=== PATIENT | female | born 1955 | race Caucasian/White ===

== ENCOUNTER 2020-05-16 20:33 | Emergency (ER) | payer BC, MEDICARE ==
[2020-05-16] MEDS ORDERED: HYDROmorphone 1 MG/ML Syringe IVPUSH STA (21:07)
[2020-05-16] MEDS ORDERED: Ondansetron 4 MG/2 ML SDV IVPUSH ONE (21:07)
[2020-05-16] MEDS ORDERED: Sodium Chloride 0.9% 1,000 ML IV SCH (21:15)
--- NOTE | 2020-05-16 21:15 | EDM.PDOC ---
ED HPI GENERAL MEDICAL PROBLEM - General Chief Complaint: Flank Pain Stated Complaint: FLANK PAIN Time Seen by Provider: 05/16/20 20:39 Source of Information: Reports: Patient, RN Notes Reviewed History Limitations: Reports: No Limitations - History of Present Illness INITIAL COMMENTS - FREE TEXT/NARRATIVE: Patient is a 64-year-old female who presents to the ED for evaluation of sudden onset left flank pain. She notes this started at around 230 this afternoon, she is having some nausea and vomiting with this as well. She states that the pain became present, and has not really relented since it showed up. She did take some Tylenol at around 5 PM, she states this did not help much at all. She is complaining of some mild abdomen pain due to the vomiting that she has been having. She denies any other recent illness. Patient denies any other sick- like symptoms, fever/chills, cough/shortness of breath, nausea/vomiting/diarrhea. She further denies any urinary issues like dysuria, frequency or urgency. She has never felt pain like this before, and she has not been known to have kidney stones in the past. Left Flank Pain Score (Numeric/FACES): 5 - Related Data Allergies Allergy/AdvReac Type Severity Reaction Status Date / Time Sulfa (Sulfonamide Allergy Severe Hives Verified 05/16/20 20:50 Antibiotics) Past Medical History Genitourinary History: Reports: UTI, Recurrent Social & Family History - Tobacco Use Tobacco Use Status *Q: Never Tobacco User - Caffeine Use Caffeine Use: Reports: None - Recreational Drug Use Recreational Drug Use: No ED ROS GENERAL - Review of Systems Review Of Systems: Comprehensive ROS is negative, except as noted in HPI. ED EXAM, RENAL/ - Physical Exam Exam: See Below Exam Limited By: No Limitations General Appearance: Alert, WD/WN, No Apparent Distress (Patient is in a mild amount of pain, she is actively holding an emesis bag, but is not actively vomiting at this time.) Respiratory/Chest: No Respiratory Distress, Lungs Clear, Normal Breath Sounds, No Accessory Muscle Use, Chest Non-Tender Cardiovascular: Normal Peripheral Pulses, Regular Rate, Rhythm, No Murmur GI/Abdominal: Normal Bowel Sounds, Soft, Non-Tender, No Distention, No Mass Extremities: Normal Inspection, Normal Capillary Refill Neurological: Alert, Oriented, Normal Cognition, No Motor/Sensory Deficits Psychiatric: Normal Affect, Normal Mood Skin Exam: Warm, Dry, Intact, Normal Color, No Rash Course - Vital Signs Last Recorded V/S: Last Vital Signs Temp 97.7 F 05/16/20 20:44 Pulse 93 05/16/20 20:44 Resp 18 05/16/20 20:44 BP 203/106 H 05/16/20 20:44 Pulse Ox 96 05/16/20 20:44 - Orders/Labs/Meds Orders: Active Orders 24 hr Category Date Time Status Abdomen Pelvis wo Cont [CT] Stat Exams 05/16/20 21:07 Taken Labs: Laboratory Tests 05/16/20 05/16/20 05/16/20 Range/Units 21:03 21:11 21:11 WBC 14.33 H (3.98-10.04) K/mm3 RBC 5.65 H (3.98-5.22) M/mm3 Hgb 11.9 (11.2-15.7) gm/dl Hct 40.4 (34.1-44.9) % MCV 71.5 L (79.4-94.8) fl MCH 21.1 L (25.6-32.2) pg MCHC 29.5 L (32.2-35.5) g/dl RDW Std Deviation 52.2 H (36.4-46.3) fL Plt Count 341 (182-369) K/mm3 MPV 9.5 (9.4-12.3) fl Neut % (Auto) 91.2 H (34.0-71.1) % Lymph % (Auto) 3.6 L (19.3-51.7) % Mayes % (Auto) 5.0 (4.7-12.5) % Eos % (Auto) 0 L (0.7-5.8) Baso % (Auto) 0.1 (0.1-1.2) % Neut # (Auto) 13.08 H (1.56-6.13) K/mm3 Lymph # (Auto) 0.51 L (1.18-3.74) K/mm3 Mayes # (Auto) 0.71 H (0.24-0.36) K/mm3 Eos # (Auto) 0.00 L (0.04-0.36) K/mm3 Baso # (Auto) 0.01 (0.01-0.08) K/mm3 Manual Slide Review Abnormal smear Sodium 138 (136-145) mEq/L Potassium 3.5 (3.5-5.1) mEq/L Chloride 100 (98-107) mEq/L Carbon Dioxide 25 (21-32) mEq/L Anion Gap 16.5 H (5-15) BUN 14 (7-18) mg/dL Creatinine 1.1 H (0.55-1.02) mg/dL Est Cr Clr Drug Dosing 45.27 mL/min Estimated GFR (MDRD) 50 (>60) mL/min BUN/Creatinine Ratio 12.7 L (14-18) Glucose 201 H (80-115) mg/dL Calcium 9.6 (8.5-10.1) mg/dL Total Bilirubin 0.6 (0.2-1.0) mg/dL AST 20 (15-37) U/L ALT 34 (14-59) U/L Alkaline Phosphatase 106 (46-116) U/L Total Protein 8.0 (6.4-8.2) g/dl Albumin 4.2 (3.4-5.0) g/dl Globulin 3.8 gm/dL Albumin/Globulin Ratio 1.1 (1-2) Urine Color Light yellow (Yellow) Urine Appearance Clear (Clear) Urine pH 8.0 (5.0-8.0) Ur Specific [place] 1.025 (1.005-1.030) Urine Protein Negative (Negative) Urine Glucose (UA) 1+ H (Negative) Urine Ketones 2+ H (Negative) Urine Occult Blood 2+ H (Negative) Urine Nitrite Negative (Negative) Urine Bilirubin Negative (Negative) Urine Urobilinogen 0.2 (0.2-1.0) Ur Leukocyte Esterase Negative (Negative) Urine RBC 40-50 H (0-5) /hpf Urine WBC 0-5 (0-5) /hpf Ur Squamous Epith Cells 0-5 (0-5) /hpf Urine Bacteria Few (FEW) /hpf Urine Mucus Few (FEW) /hpf Meds: Medications Discontinued Medications Generic Name Dose Route Start Last Admin Trade Name Freq PRN Reason Stop Dose Admin Hydromorphone HCl 0.5 mg 05/16/20 21:07 05/16/20 21:20 Dilaudid IVPUSH 05/16/20 21:08 0.5 mg ONETIME STA Administration Sodium Chloride 1,000 mls @ 150 mls/hr 05/16/20 21:15 05/16/20 21:18 Normal Saline IV 150 mls/hr ASDIRECTED LEIGH Administration Ondansetron HCl 4 mg 05/16/20 21:07 05/16/20 21:18 Zofran IVPUSH 05/16/20 21:08 4 mg ONETIME ONE Administration - Re-Assessments/Exams Free Text/Narrative Re-Assessment/Exam: 05/16/20 21:14 Patient presents to the ED for the evaluation of her sudden onset left flank pain. This does present like a kidney stone in nature. She is already given us a urine sample for evaluation. She will get IV to be placed, half a milligram of Dilaudid for initial pain management, 4 mg Zofran, IV fluids, and abdomen pelvis CT without contrast for further evaluation. Of note the patient's blood pressure is elevated at 200 systolically. We will await to see if she gets some relief from the pain, before we treat her blood pressure at this time. 05/16/20 22:09 Patient's white count is back, mildly elevated at 14.99, with 91% neutrophils. Metabolic panel shows a creatinine of 1.1 with a GFR 50, I do not have a baseline to compare this to. Blood sugar also mildly elevated at 200, the CT has been performed, there is some perinephric stranding around the left kidney, and there does appear to be a rather large stone within the proximal left ureter, and another stone within the left kidney itself. Still awaiting urinalysis, as I inadvertently canceled the order initially. But I did put the order back in, and they state they will resulted shortly. 05/16/20 22:15 The patient's urinalysis is back, demonstrates no obvious sign of infection, she has 40-50 red blood cells per high-power field, leukocyte Estrace negative, nitrite negative, 0-5 white blood cells. I do suspect that the patient's elevated white count might be due to stress reaction at this time. She has not had a fever, or any other worrisome symptoms. The patient's blood pressure has improved to 159/85 at this time. 05/16/20 22:31 The patient does have a 7.5 x 5.5 left UPJ stone with moderate left hydronephrosis and perinephric stranding. There is also a large hiatal hernia appreciated. There is also a 16 x 12 mm partial spiculated asymmetric nodular density within the upper inner quadrant of the left breast is only partially visualized, direct clinical assessment and follow-up diagnostic mammographic evaluation is recommended to exclude features of malignancy. Departure - Departure Time of Disposition: 22:48 Disposition: Home, Self-Care 01 Condition: Good Clinical Impression: Kidney stone on left side, Breast mass in female - Discharge Information *PRESCRIPTION DRUG MONITORING PROGRAM REVIEWED*: No *COPY OF PRESCRIPTION DRUG MONITORING REPORT IN PATIENT HONORIO: No Instructions: Breast Self-Awareness, [id number], Kidney Stones, [id number], Dietary Guidelines to Help Prevent Kidney Stones Referrals: PCP,None [Primary Care Provider] - Forms: ED Department Discharge Additional Instructions: You were evaluated in the ER today for your left flank pain. Your urinalysis did demonstrate some blood in urine, which is suggestive of a kidney stone at this time. A CT was done at this ER visit, this demonstrated a rather large kidney stone within your proximal left ureter, this measures 7.5 x 5.5 mm. You have been given a strainer, please use every time you use the bathroom to make sure that the kidney stone has passed. There is a very high likelihood, that this will not pass on its own. Recommend that you increase your oral fluid intake to try to help the stone pass. You have been given a few tablets of pain medication, please take as prescribed. These medications are highly addictive, please take as few as you need to. These medications also may cause constipation, please take a stool softener like MiraLAX while taking these medications. You were given a few tablets of medication for nausea as well, 1 tablet dissolvable under your tongue every 8 hours as needed for further nausea. You will need to follow-up with urology, for further evaluation and management. [facility] urology clinics in [place] telephone number is [phone], you may call there on Tuesday morning to get an appointment for further evaluation and management. Your CT also demonstrated an incidental finding of a 16 x 12 mm mass within your left breast. Radiology is suggesting a follow-up diagnostic mammography to exclude features of malignancy at this time. It is very important that you follow-up with a regular care provider, so we can get a mammo ordered to help further evaluate this mass. Please return to the ED if your symptoms change or worsen. Sepsis Event Note (ED) - Evaluation Sepsis Screening Result: No Definite Risk - My Orders Last 24 Hours: My Active Orders 05/16/20 21:07 Abdomen Pelvis wo Cont [CT] Stat - Assessment/Plan Last 24 Hours: My Active Orders 05/16/20 21:07 Abdomen Pelvis wo Cont [CT] Stat
--- NOTE | 2020-05-19 09:25 | CT ---
PROCEDURE INFORMATION: Exam: CT Abdomen And Pelvis Without Contrast Exam date and time: 05/16/2020 9:53 PM Age: 64 years old Clinical indication: Other: Left lower back; Patient HX: Acute lower left sided back pain, eval for ureterolith TECHNIQUE: Imaging protocol: Computed tomography of the abdomen and pelvis without contrast. Radiation optimization: All CT scans at this facility use at least one of these dose optimization techniques: automated exposure control; mA and/or kV adjustment per patient size (includes targeted exams where dose is matched to clinical indication); or iterative reconstruction. COMPARISON: No relevant prior studies available. FINDINGS: Lungs: Compressive atelectasis in the left lower lobe adjacent to the large hiatal hernia. Heart: Mild cardiomegaly. Liver: Normal size and contour. Well-circumscribed low-density lesion in the right hepatic lobe measuring 8 mm in diameter, demonstrating benign CT features most consistent with hepatic cyst. Another is seen in the left lobe measuring 6 mm. No further imaging characterization/followup is required based on current consensus criteria. No intrahepatic biliary ductal dilatation. Gallbladder and bile ducts: Normal. No calcified stones. No ductal dilation. Pancreas: Normal. No inflammatory changes or ductal dilation. Spleen: Normal. No splenomegaly. Adrenal glands: Normal. No adrenal mass. Kidneys and ureters: Moderate left hydronephrosis with a 7.5 by 5.5 mm left UPJ stone. The right kidney and right collecting system are unremarkable. 4.5 mm nonobstructive stone in the upper pole of the left kidney. Stomach and bowel: Large hiatal hernia containing the mid and proximal gastric segments. The small bowel is normal with no evidence of obstruction. No acute colonic abnormalities. Appendix: The appendix is normal in caliber and demonstrates no evidence of appendicitis. Intraperitoneal space: No free fluid or air. Vasculature: Moderate tortuosity/ectasia of the thoracic aorta. Mild atherosclerotic aortoiliac calcification without aneurysm. Lymph nodes: No adenopathy. Urinary bladder: Unremarkable as visualized. Reproductive: Unremarkable as visualized. Bones/joints: Osteopenia. Mild superior endplate compression deformity of L1 with 25% loss of anterior vertebral body height, likely chronic with no retropulsion. 5 mm degenerative retrolisthesis L3-L4. Soft tissues: 16 x 12 mm partially spiculated asymmetric nodular density in the upper inner quadrant of the left breast on series 2, image 1, partially visualized. Directed clinical assessment and follow-up diagnostic mammographic evaluation recommended. IMPRESSION: 1. 7.5 x 5.5 mm left UPJ stone with moderate left hydronephrosis and perinephric stranding. 2. 16 x 12 mm partially spiculated asymmetric nodular density in the upper inner quadrant of the left breast. There is only partially visualized. Directed clinical assessment and follow-up diagnostic mammographic evaluation recommended to exclude features of malignancy. 3. Large hiatal hernia. 4. Mild superior endplate compression deformity of L1 is age indeterminate but demonstrates largely chronic CT features. 5. Additional non-emergent findings detailed above. Thank you for allowing us to participate in the care of your patient. Dictated and Authenticated by: Elie Hernández MD 05/16/2020 11:23 PM Central Time ([place] & [place]) BUD
== END 2020-05-16 23:21 | disposition home or self-care (01) ==
LOC: JD.ED 20:33
DX: N13.2 Hydronephrosis with renal and ureteral calculous obstruction (principal); N63.20 Unspecified lump in the left breast, unspecified quadrant
CPT/HCPCS: 36415; 74176; 80053; 81001; 85025; 96374; 96375; 99284; J1170; J2405; J7030

== ENCOUNTER 2020-05-18 07:52 | Emergency (ER) | payer BC, MEDICARE ==
--- NOTE | 2020-05-18 08:21 | EDM.PDOC ---
ED HPI GENERAL MEDICAL PROBLEM - General Chief Complaint: Gastrointestinal Problem Stated Complaint: ABD PAIN/VOMITING Time Seen by Provider: 05/18/20 08:13 - History of Present Illness INITIAL COMMENTS - FREE TEXT/NARRATIVE: 64-year-old female returns to the emergency room with nausea vomiting and continued abdominal pain. Patient was seen here 2 days ago diagnosed with a left-sided kidney stone that was proximal. She thought she had a bladder infection but was not started on antibiotics. Her urinalysis done 2 days ago was not suggestive of an infectious process. Patient has left-sided abdominal pain and when he gets bad radiates across the lower abdomen. She is not aware of any fevers or chills however Zofran is not working and she is developing more nausea and vomiting. She gets some relief from the discomfort using the Merrill. Patient denies fevers or chills and has no pain with urination. Abdominal Pain Score (Numeric/FACES): 10 - Related Data Allergies Allergy/AdvReac Type Severity Reaction Status Date / Time Sulfa (Sulfonamide Allergy Severe Hives Verified 05/18/20 08:16 Antibiotics) Home Meds: Home Meds Ciprofloxacin HCl [Cipro] 500 mg PO BID #14 tablet 05/18/20 [Rx] Past Medical History Genitourinary History: Reports: UTI, Recurrent Social & Family History - Caffeine Use Caffeine Use: Reports: None ED ROS GENERAL - Review of Systems Review Of Systems: See Below Constitutional: Reports: No Symptoms HEENT: Reports: No Symptoms Respiratory: Reports: No Symptoms Cardiovascular: Reports: No Symptoms GI/Abdominal: Reports: Abdominal Pain, Nausea, Vomiting : Reports: Flank Pain. Denies: Discharge, Frequency, Hematuria, Urgency Musculoskeletal: Reports: No Symptoms Neurological: Reports: No Symptoms ED EXAM, GI/ABD - Physical Exam Exam: See Below Exam Limited By: No Limitations General Appearance: Alert, No Apparent Distress, Other (Her blood pressure is quite elevated we will keep an eye on this. Her pulse oximetry is 89 to 90% on room air will keep an eye on this as well.) Head: Atraumatic, Normocephalic Neck: Normal Inspection, Supple, Non-Tender, Full Range of Motion Respiratory/Chest: No Respiratory Distress, Lungs Clear, Normal Breath Sounds Cardiovascular: Regular Rate, Rhythm, No Edema, No Murmur GI/Abdominal Exam: Normal Bowel Sounds, Soft, Other (Left-sided discomfort minimally worsened with palpation no other palpable tenderness noted no rigidity rebound or guarding noted.) Back Exam: Normal Inspection. No: CVA Tenderness (L), CVA Tenderness (R) Extremities: Normal Inspection, No Pedal Edema Neurological: Alert, Oriented, Normal Cognition Course - Vital Signs Last Recorded V/S: Last Vital Signs Temp 36.8 C 05/18/20 08:11 Pulse 107 H 05/18/20 08:11 Resp 18 05/18/20 08:11 BP 210/123 H 05/18/20 08:11 Pulse Ox 90 L 05/18/20 08:11 - Orders/Labs/Meds Orders: Active Orders 24 hr Category Date Time Status KUB [Abdomen 1V Flat] [CR] Stat Exams 05/18/20 11:18 Taken CULTURE URINE [RM] Stat Lab 05/18/20 09:15 Received Labs: Laboratory Tests 05/18/20 05/18/20 05/18/20 Range/Units 09:03 09:03 09:07 WBC 15.40 H (3.98-10.04) K/mm3 RBC 5.29 H (3.98-5.22) M/mm3 Hgb 11.2 (11.2-15.7) gm/dl Hct 37.8 (34.1-44.9) % MCV 71.5 L (79.4-94.8) fl MCH 21.2 L (25.6-32.2) pg MCHC 29.6 L (32.2-35.5) g/dl RDW Std Deviation 51.6 H (36.4-46.3) fL Plt Count 279 (182-369) K/mm3 MPV 10.0 (9.4-12.3) fl Neutrophils % (Manual) 87 H (40-60) % Band Neutrophils % 0 (0-10) % Lymphocytes % (Manual) 5 L (20-40) % Atypical Lymphs % 0 % Monocytes % (Manual) 8 (2-10) % Eosinophils % (Manual) 0 L (0.7-5.8) % Basophils % (Manual) 0 L (0.1-1.2) Platelet Estimate Adequate Poikilocytosis 1+ slight Anisocytosis 2+ moderate Microcytosis 2+ moderate RBC Morph Comment Abnormal Sodium 133 L (136-145) mEq/L Potassium 3.4 L (3.5-5.1) mEq/L Chloride 97 L (98-107) mEq/L Carbon Dioxide 27 (21-32) mEq/L Anion Gap 12.4 (5-15) BUN 11 (7-18) mg/dL Creatinine 0.9 (0.55-1.02) mg/dL Est Cr Clr Drug Dosing 55.33 mL/min Estimated GFR (MDRD) > 60 (>60) mL/min BUN/Creatinine Ratio 12.2 L (14-18) Glucose 147 H (80-115) mg/dL Lactic Acid 0.7 (0.4-2.0) mmol/L Calcium 9.1 (8.5-10.1) mg/dL Total Bilirubin 0.8 (0.2-1.0) mg/dL AST 13 L (15-37) U/L ALT 28 (14-59) U/L Alkaline Phosphatase 92 (46-116) U/L Total Protein 7.4 (6.4-8.2) g/dl Albumin 3.6 (3.4-5.0) g/dl Globulin 3.8 gm/dL Albumin/Globulin Ratio 1.0 (1-2) Urine Color (Yellow) Urine Appearance (Clear) Urine pH (5.0-8.0) Ur Specific [place] (1.005-1.030) Urine Protein (Negative) Urine Glucose (UA) (Negative) Urine Ketones (Negative) Urine Occult Blood (Negative) Urine Nitrite (Negative) Urine Bilirubin (Negative) Urine Urobilinogen (0.2-1.0) Ur Leukocyte Esterase (Negative) Urine RBC (0-5) /hpf Urine WBC (0-5) /hpf Ur Squamous Epith Cells (0-5) /hpf Urine Bacteria (FEW) /hpf Urine Mucus (FEW) /hpf 15/20 Range/Units 09:15 WBC (3.98-10.04) K/mm3 RBC (3.98-5.22) M/mm3 Hgb (11.2-15.7) gm/dl Hct (34.1-44.9) % MCV (79.4-94.8) fl MCH (25.6-32.2) pg MCHC (32.2-35.5) g/dl RDW Std Deviation (36.4-46.3) fL Plt Count (182-369) K/mm3 MPV (9.4-12.3) fl Neutrophils % (Manual) (40-60) % Band Neutrophils % (0-10) % Lymphocytes % (Manual) (20-40) % Atypical Lymphs % % Monocytes % (Manual) (2-10) % Eosinophils % (Manual) (0.7-5.8) % Basophils % (Manual) (0.1-1.2) Platelet Estimate Poikilocytosis Anisocytosis Microcytosis RBC Morph Comment Sodium (136-145) mEq/L Potassium (3.5-5.1) mEq/L Chloride (98-107) mEq/L Carbon Dioxide (21-32) mEq/L Anion Gap (5-15) BUN (7-18) mg/dL Creatinine (0.55-1.02) mg/dL Est Cr Clr Drug Dosing mL/min Estimated GFR (MDRD) (>60) mL/min BUN/Creatinine Ratio (14-18) Glucose (80-115) mg/dL Lactic Acid (0.4-2.0) mmol/L Calcium (8.5-10.1) mg/dL Total Bilirubin (0.2-1.0) mg/dL AST (15-37) U/L ALT (14-59) U/L Alkaline Phosphatase (46-116) U/L Total Protein (6.4-8.2) g/dl Albumin (3.4-5.0) g/dl Globulin gm/dL Albumin/Globulin Ratio (1-2) Urine Color Yellow (Yellow) Urine Appearance Clear (Clear) Urine pH 6.5 (5.0-8.0) Ur Specific [place] > or = 1.030 (1.005-1.030) Urine Protein 2+ H (Negative) Urine Glucose (UA) Negative (Negative) Urine Ketones 2+ H (Negative) Urine Occult Blood 1+ H (Negative) Urine Nitrite Negative (Negative) Urine Bilirubin Negative (Negative) Urine Urobilinogen 0.2 (0.2-1.0) Ur Leukocyte Esterase Trace H (Negative) Urine RBC 5-10 H (0-5) /hpf Urine WBC 10-20 H (0-5) /hpf Ur Squamous Epith Cells 0-5 (0-5) /hpf Urine Bacteria Few (FEW) /hpf Urine Mucus Few (FEW) /hpf Meds: Medications Discontinued Medications Generic Name Dose Route Start Last Admin Trade Name Reji PRN Reason Stop Dose Admin Fentanyl 50 mcg 05/18/20 08:23 05/18/20 08:37 Sublimaze IVPUSH 05/18/20 08:24 50 mcg ONETIME ONE Administration Fentanyl 50 mcg 05/18/20 09:29 05/18/20 09:30 Sublimaze IVPUSH 05/18/20 09:30 50 mcg ONETIME STA Administration Ondansetron HCl 4 mg 05/18/20 08:23 05/18/20 08:33 Zofran IVPUSH 05/18/20 08:24 4 mg ONETIME ONE Administration - Re-Assessments/Exams Free Text/Narrative Re-Assessment/Exam: 05/18/20 12:06 KUB shows a lot of gas in the large bowel. There is some stool noted in the rectum. She also has a large esophageal hiatal hernia. Urinalysis possibly could be suggestive of a developing UTI she has more white cells and at the red cells trace leukocyte esterase. The case was discussed with Dr. Covington, on- call urologist at [facility] his recommendation is to go ahead and start Cipro and to schedule appointment with urology early this next week. I did discuss all this with the patient and with the patient having difficulty did discuss the possibility of inpatient management. However the patient really wants to go home she can use her Zofran 1 or 2 tablets every 6 hours as needed and she can use her Merrill as prescribed 1 every 4-6 hours as needed which is been doing okay for her. We did discuss her drinking a bottle of mag citrate see if that would help move the rectal stool and allow for passage of the colon gas. She will stick with a strict clear liquid diet for now. Departure - Departure Time of Disposition: 12:08 Disposition: Home, Self-Care 01 Clinical Impression: Left renal stone, Gaseous distention of intestine determined by X-ray - Discharge Information Referrals: Inés Valencia MD [Primary Care Provider] - Forms: ED Department Discharge, ED Return to Work/School Form Additional Instructions: Return to the emergency room with any questions problems or worsening symptoms. Start the antibiotics as directed. [facility] [address]. Liquid diet as we discussed. Call [phone], this is central scheduling for [facility] in [place] you need to be seen by urology early to middle part of this week. Your case was reviewed with Dr. Covington. Of your nausea medication, take 1 or 2 every 6 hours as needed. Continue your pain medications if you have any using before. Do not drive or return to work within 12 hours of using the pain medication. Sepsis Event Note (ED) - Focused Exam Vital Signs: Vital Signs Temp Pulse Resp BP Pulse Ox 05/18/20 08:11 36.8 C 107 H 18 210/123 H 90 L - My Orders Last 24 Hours: My Active Orders 05/18/20 09:15 CULTURE URINE [RM] Stat 05/18/20 11:18 KUB [Abdomen 1V Flat] [CR] Stat - Assessment/Plan Last 24 Hours: My Active Orders 05/18/20 09:15 CULTURE URINE [RM] Stat 05/18/20 11:18 KUB [Abdomen 1V Flat] [CR] Stat
[2020-05-18] MEDS ORDERED: fentaNYL 100 MCG/2 ML SDV IVPUSH ONE (08:23)
[2020-05-18] MEDS ORDERED: Ondansetron 4 MG/2 ML SDV IVPUSH ONE (08:23)
[2020-05-18] MEDS ORDERED: fentaNYL 100 MCG/2 ML SDV IVPUSH STA (09:29)
--- NOTE | 2020-05-19 09:35 | CR ---
PROCEDURE INFORMATION: Exam: XR Abdomen, 1 View Exam date and time: 05/18/2020 11:30 AM Age: 64 years old Clinical indication: Other: No bowel movement for 5 days. TECHNIQUE: Imaging protocol: XR of the abdomen. Views: Frontal supine view of the abdomen. 1 View. COMPARISON: CT Abdomen Pelvis wo Cont 05/16/2020 9:53 PM FINDINGS: Heart/Mediastinum: Large esophageal hiatal hernia. Most of the stomach is herniated above the left diaphragm. Gastrointestinal tract: Gas distended mildly dilated loops large bowel throughout the abdomen. Gas and stool is seen in the rectum. No dilated loops of small bowel are identified. Bones/joints: Unremarkable. IMPRESSION: 1. Gas distended mildly dilated loops of large bowel from the cecum to the rectum. 2. Large esophageal hiatal hernia. Thank you for allowing us to participate in the care of your patient. Dictated and Authenticated by: Nayeli Montoya MD 05/18/2020 12:55 PM Central Time ([place] & [place]) BUD
== END 2020-05-18 12:35 | disposition home or self-care (01) ==
LOC: JD.ED 07:52
DX: N20.0 Calculus of kidney (principal); K63.89 Other specified diseases of intestine; Z88.2 Allergy status to sulfonamides
CPT/HCPCS: 36415; 74018; 80053; 81001; 83605; 85007; 85027; 87086; 87088; 87186; 96374; 96375; 96376; 99284; J2405; J3010

== ENCOUNTER 2021-07-13 13:59 | Emergency (ER) | payer BC, MEDICARE ==
[2021-07-13] MEDS ORDERED: Sodium Chloride 0.9% 10 ML Syringe FLUSH PRN (14:22)
--- NOTE | 2021-07-13 15:31 | EDM.PDOC ---
ED HPI GENERAL MEDICAL PROBLEM - General Chief Complaint: Cardiovascular Problem Stated Complaint: [facility] Time Seen by Provider: 07/13/21 14:02 Source of Information: Reports: Patient, EMS, EMS Notes Reviewed History Limitations: Reports: No Limitations - History of Present Illness INITIAL COMMENTS - FREE TEXT/NARRATIVE: 65-year-old female presents the emergency department via ambulance service with complaints of dizziness and low heart rate. Patient states she was at work at her local [employer] this morning when she began to feel dizzy. She states she checked her oxygen level on her pulse oximeter which read 99% however her heart rate read 35. At that time she elected to call [facility] and spoke to a nurse and the nurse directed her to call EMS immediately and be brought to the emergency department. At the time of triage, the patient is awake alert and oriented. She denies any chest pain, nausea, diaphoresis or lightheadedness. Patient does not have any past medical history other than a kidney stone approximately 1 year ago. She has no cardiac history. Patient does not have a smoking history. She does not take any prescription medications. Her primary care provider is Dr. Erickson. - Related Data Allergies Allergy/AdvReac Type Severity Reaction Status Date / Time Sulfa (Sulfonamide Allergy Severe Hives Verified 07/13/21 14:11 Antibiotics) ketorolac [From Toradol] Allergy Cannot Verified 07/13/21 14:11 Remember Home Meds: Home Meds Ciprofloxacin HCl [Cipro] 500 mg PO BID #14 tablet 05/18/20 [Rx] Past Medical History Genitourinary History: Reports: Renal Calculus, UTI, Recurrent Social & Family History - Tobacco Use Tobacco Use Status *Q: Never Tobacco User - Caffeine Use Caffeine Use: Reports: None ED ROS GENERAL - Review of Systems Review Of Systems: Comprehensive ROS is negative, except as noted in HPI. ED EXAM, GENERAL - Physical Exam Exam: See Below Exam Limited By: No Limitations General Appearance: Alert, WD/WN, No Apparent Distress Ears: Normal External Exam, Hearing Grossly Normal Nose: Normal Inspection Throat/Mouth: Normal Inspection, Normal Lips, Normal Voice, No Airway Compromise Head: Atraumatic Neck: Normal Inspection, Supple Respiratory/Chest: No Respiratory Distress, Lungs Clear, Normal Breath Sounds, No Accessory Muscle Use, Chest Non-Tender Cardiovascular: Normal Peripheral Pulses, No Edema, No Murmur, Bradycardia, Tachycardia Peripheral Pulses: 2+: Radial (L), Radial (R) GI/Abdominal: Normal Bowel Sounds, Soft, Non-Tender, No Distention (Female) Exam: Deferred Rectal (Female) Exam: Deferred Back Exam: Normal Inspection Extremities: Normal Inspection Neurological: Alert, Oriented, Normal Cognition Psychiatric: Normal Affect, Normal Mood Skin Exam: Warm, No Rash, Pallor Lymphatic: No Adenopathy #1 Interpretation EKG Date: 07/13/21 Time: 14:24 Rhythm: Other Rate (Beats/Min): 152 [place]: Other P-Wave: Variable QRS: Other ST-T: Other QT: Normal Comparison: NA - No Prior EKG EKG Interpretation Comments: Per Dr. Steward interpretation: SVT; incomplete RBB, abnormal r wave progression; probable rv involvemen, suggest recording right precordial lead Course - Vital Signs Text/Narrative:: As stated above, patient presents with sudden onset dizziness that occurred while at work today. The time of my exam, the patient is awake alert and oriented. She denies any chest pain dizziness or nausea. Several twelve-lead EKGs were completed which show patient going in and out of the tachycardic and bradycardic rhythm. I did phone [facility] call and spoke with , neurologist on-call, and had him review the patient's EKGs. He states that it looks like the patient is having runs of sinus rhythm with premature ventricular contractions as well as some complete heart block. He does not recommend I start her on any medication to control her heart rate and rhythm. He states that she needs to be transferred somewhere where an ethnoarchaeology professor can evaluate her. I did order a full cardiac work-up to include labs, EKGs, Covid swabs and chest x-ray. I have phoned [facility] call and spoken with the 1 call nurse. He states that he may have a bed available and has paged the inventory control manager, , who will be returning my call. Pacer pads are on the patient. Last Recorded V/S: Last Vital Signs Temp 98.3 F 07/13/21 14:08 Pulse 130 H 07/13/21 14:08 Resp 18 07/13/21 14:08 BP 183/106 H 07/13/21 14:08 Pulse Ox 96 07/13/21 14:08 - Orders/Labs/Meds Orders: Active Orders 24 hr Category Date Time Status Saline Lock Insert [OM.PC] Stat Oth 07/13/21 14:22 Ordered Labs: Laboratory Tests 07/13/21 07/13/21 07/13/21 Range/Units 14:14 14:14 14:14 WBC 9.28 (3.98-10.04) K/mm3 RBC 4.83 (3.98-5.22) M/mm3 Hgb 9.2 L D (11.2-15.7) gm/dl Hct 33.0 L (34.1-44.9) % MCV 68.3 L D (79.4-94.8) fl MCH 19.0 L (25.6-32.2) pg MCHC 27.9 L (32.2-35.5) g/dl RDW Std Deviation 52.4 H (36.4-46.3) fL Plt Count 336 (182-369) K/mm3 MPV 10.9 (9.4-12.3) fl Neut % (Auto) 83.1 H (34.0-71.1) % Lymph % (Auto) 8.7 L (19.3-51.7) % Curry % (Auto) 7.2 (4.7-12.5) % Eos % (Auto) 0.6 L (0.7-5.8) Baso % (Auto) 0.2 (0.1-1.2) % Neut # (Auto) 7.70 H (1.56-6.13) K/mm3 Lymph # (Auto) 0.81 L (1.18-3.74) K/mm3 Curry # (Auto) 0.67 H (0.24-0.36) K/mm3 Eos # (Auto) 0.06 (0.04-0.36) K/mm3 Baso # (Auto) 0.02 (0.01-0.08) K/mm3 Manual Slide Review Abnormal smear Sodium 139 (136-145) mEq/L Potassium 3.6 (3.5-5.1) mEq/L Chloride 102 (98-107) mEq/L Carbon Dioxide 23 (21-32) mEq/L Anion Gap 17.6 H (5-15) BUN 15 (7-18) mg/dL Creatinine 0.9 (0.55-1.02) mg/dL Est Cr Clr Drug Dosing TNP Estimated GFR (MDRD) > 60 (>60) mL/min BUN/Creatinine Ratio 16.7 (14-18) Glucose 197 H (70-99) mg/dL Calcium 8.6 (8.5-10.1) mg/dL Magnesium 2.0 (1.8-2.4) mg/dL Total Bilirubin 0.8 (0.2-1.0) mg/dL AST 35 (15-37) U/L ALT 56 (14-59) U/L Alkaline Phosphatase 69 (46-116) U/L Troponin I 0.039 (0.00-0.056) ng/mL C-Reactive Protein <0.2 (<1.0) mg/dL NT-Pro-B Natriuret Pep 3516 H (0-125) pg/mL Total Protein 7.1 (6.4-8.2) g/dl Albumin 3.6 (3.4-5.0) g/dl Globulin 3.5 gm/dL Albumin/Globulin Ratio 1.0 (1-2) TSH 3rd Generation 1.788 (0.358-3.74) uIU/mL SARS-CoV-2 RNA ([place]ATOYA) (NEGATIVE) 07/13/21 Range/Units 15:00 WBC (3.98-10.04) K/mm3 RBC (3.98-5.22) M/mm3 Hgb (11.2-15.7) gm/dl Hct (34.1-44.9) % MCV (79.4-94.8) fl MCH (25.6-32.2) pg MCHC (32.2-35.5) g/dl RDW Std Deviation (36.4-46.3) fL Plt Count (182-369) K/mm3 MPV (9.4-12.3) fl Neut % (Auto) (34.0-71.1) % Lymph % (Auto) (19.3-51.7) % Curry % (Auto) (4.7-12.5) % Eos % (Auto) (0.7-5.8) Baso % (Auto) (0.1-1.2) % Neut # (Auto) (1.56-6.13) K/mm3 Lymph # (Auto) (1.18-3.74) K/mm3 Curry # (Auto) (0.24-0.36) K/mm3 Eos # (Auto) (0.04-0.36) K/mm3 Baso # (Auto) (0.01-0.08) K/mm3 Manual Slide Review Sodium (136-145) mEq/L Potassium (3.5-5.1) mEq/L Chloride (98-107) mEq/L Carbon Dioxide (21-32) mEq/L Anion Gap (5-15) BUN (7-18) mg/dL Creatinine (0.55-1.02) mg/dL Est Cr Clr Drug Dosing Estimated GFR (MDRD) (>60) mL/min BUN/Creatinine Ratio (14-18) Glucose (70-99) mg/dL Calcium (8.5-10.1) mg/dL Magnesium (1.8-2.4) mg/dL Total Bilirubin (0.2-1.0) mg/dL AST (15-37) U/L ALT (14-59) U/L Alkaline Phosphatase (46-116) U/L Troponin I (0.00-0.056) ng/mL C-Reactive Protein (<1.0) mg/dL NT-Pro-B Natriuret Pep (0-125) pg/mL Total Protein (6.4-8.2) g/dl Albumin (3.4-5.0) g/dl Globulin gm/dL Albumin/Globulin Ratio (1-2) TSH 3rd Generation (0.358-3.74) uIU/mL SARS-CoV-2 RNA ([place]OYA) Negative (NEGATIVE) Meds: Medications Discontinued Medications Generic Name Dose Route Start Last Admin Trade Name Freq PRN Reason Stop Dose Admin Sodium Chloride 10 ml 07/13/21 14:22 07/13/21 14:31 Sodium Chloride 0.9% 10 Ml Syringe FLUSH 10 ml ASDIRECTED PRN Administration Keep Vein Open - Re-Assessments/Exams Free Text/Narrative Re-Assessment/Exam: 07/13/21 15:33 Hematology reveals a WBC of 9.28, hemoglobin 9.2, hematocrit 33.0, platelet count 336 Chemistry reveals a sodium of 139, potassium 3.6, carbon dioxide 23, anion gap 17.6, BUN 15, creatinine 0.9, GFR greater than 60, glucose 197, magnesium 2.0, troponin 0 0.039, C-reactive protein less than 0.2, proBNP 3516, TSH 1.788 07/13/21 15:42 Radiologist impression portable chest x-ray: Shallow inspiration and portable technique accentuate heart size. There is mild prominence of the upper lobe pulmonary vessels without overt edema. Possible retrocardiac hiatal hernia. No pneumothorax or pleural effusion. No focal consolidation. 07/13/21 16:07 Patient is Covid negative. I again tried to call [facility] call as they have not returned my call with inventory control manager. They state they have paged him again and will return my phone call once again. Departure - Departure Time of Disposition: 17:55 Disposition: DC/Tfer to Acute Hospital 02 Reason for Transfer *Q: Other Condition: Fair Clinical Impression: Heart block AV third degree Referrals: PCP,None [Primary Care Provider] - Forms: ED Department Discharge Sepsis Event Note (ED) - Evaluation Sepsis Screening Result: No Definite Risk - Focused Exam Vital Signs: Vital Signs Temp Pulse Resp BP Pulse Ox 07/13/21 14:08 98.3 F 130 H 18 183/106 H 96 - My Orders Last 24 Hours: My Active Orders 07/13/21 14:22 Saline Lock Insert [OM.PC] Stat - Assessment/Plan Last 24 Hours: My Active Orders 07/13/21 14:22 Saline Lock Insert [OM.PC] Stat
--- NOTE | 2021-07-13 16:13 | CR ---
EXAM: XR CHEST 1 VIEW LOCATION: [facility] [employer] DATE/TIME: 07/13/2021 2:29 PM INDICATION: Arrythmia COMPARISON: None. IMPRESSION: Shallow inspiration and portable technique accentuate heart size. There is mild prominence of upper lobe pulmonary vessels without overt edema. Possible retrocardiac hiatal hernia. No pneumothorax or pleural effusion. No focal consolidation. SIGNED BY: Bennett Daniels MD 07/13/2021 4:29 PM MTDSam
== END 2021-07-13 17:55 ==
LOC: JD.ED 13:59
DX: I44.2 Atrioventricular block, complete (principal); Z88.2 Allergy status to sulfonamides; Z88.6 Allergy status to analgesic agent; Z20.822 Contact with and (suspected) exposure to COVID-19
CPT/HCPCS: 36415; 71045; 71045-26; 80053; 83735; 83880; 84443; 84484; 85025; 86140; 93005; 99285-25; U0002

== ENCOUNTER 2022-06-19 14:39 | Inpatient (IN) | payer BC, MEDICARE ==
[2022-06-19] MEDS ORDERED: Sodium Chloride 0.9% 10 ML Syringe FLUSH PRN ×2 (15:52→17:31)
[2022-06-19] MEDS ORDERED: Sodium Chloride 0.9% 1,000 ML IV SCH (16:00)
[2022-06-19] MEDS ORDERED: cefTRIAXone 1 GM in Sodium Chloride 0.9% 100 ML IV ONE ×2 (17:08→19:47)
[2022-06-19] MEDS ORDERED: Morphine 2 MG/ML SYRINGE IVPUSH PRN (17:34)
[2022-06-19] MEDS ORDERED: Docusate Sodium 100 MG Cap PO PRN (17:34)
[2022-06-19] MEDS ORDERED: Ondansetron 4 MG Tab.DIS PO PRN (17:34)
[2022-06-19] MEDS ORDERED: Ondansetron 4 MG/2 ML SDV IV PRN (17:34)
[2022-06-19] MEDS ORDERED: Heparin Sodium 5,000 Units/ML Vial SUBCUT SCH (17:45)
[2022-06-19] MEDS: cefTRIAXone 2 GM in Sodium Chloride 0.9% 100 ML IV SCH (19:53)
[2022-06-19] MEDS: Apixaban 5 MG Tab PO SCH (20:28)
[2022-06-19] MEDS: Lactated Ringers 1,000 ML IV SCH (22:05)
[2022-06-20] MEDS: Acetaminophen 325 MG Tab PO PRN ×3 (00:15→23:50)
[2022-06-20] MEDS ORDERED: Lactated Ringers 1,000 ML IV ONE ×2 (03:55→05:23)
[2022-06-20] MEDS: Heparin Sodium 5,000 Units/ML Vial SUBCUT SCH ×3 (04:02→20:50)
[2022-06-20] MEDS: Apixaban 5 MG Tab PO SCH ×3 (09:56→23:49)
[2022-06-20] MEDS: Lactated Ringers 1,000 ML IV SCH ×2 (10:38→19:04)
[2022-06-20] MEDS: cefTRIAXone 2 GM in Sodium Chloride 0.9% 100 ML IV SCH (18:20)
[2022-06-21] MEDS: Lactated Ringers 1,000 ML IV SCH ×4 (02:35→20:27)
[2022-06-21] MEDS: Heparin Sodium 5,000 Units/ML Vial SUBCUT SCH (05:14)
[2022-06-21] MEDS ORDERED: Potassium Chloride 20 MEQ Tab.ER PO ONE (07:16)
[2022-06-21] MEDS: Apixaban 5 MG Tab PO SCH ×2 (08:28→20:23)
[2022-06-21] MEDS: Acetaminophen 325 MG Tab PO PRN ×2 (10:25→18:42)
[2022-06-21] MEDS: cefTRIAXone 2 GM in Sodium Chloride 0.9% 100 ML IV SCH (18:43)
[2022-06-22] MEDS: Lactated Ringers 1,000 ML IV SCH ×2 (06:00→15:08)
[2022-06-22] MEDS: Apixaban 5 MG Tab PO SCH ×2 (08:00→21:26)
[2022-06-22] MEDS: cefTRIAXone 2 GM in Sodium Chloride 0.9% 100 ML IV SCH (16:56)
[2022-06-22] MEDS: Metoprolol Succinate 50 MG Tab.ER PO SCH (21:26)
[2022-06-22] MEDS: Amoxicillin 500 MG Cap PO SCH (21:27)
[2022-06-23] MEDS: Lactated Ringers 1,000 ML IV SCH ×2 (00:19→08:14)
[2022-06-23] MEDS: Amoxicillin 500 MG Cap PO SCH (05:48)
[2022-06-23] MEDS: Metoprolol Succinate 50 MG Tab.ER PO SCH (08:09)
[2022-06-23] MEDS: Apixaban 5 MG Tab PO SCH (08:10)
[2022-06-23] MEDS ORDERED: Spironolactone 25 MG Tab PO SCH (09:00)
[2022-06-23] MEDS ORDERED: atorvaSTATin 40 MG Tab PO SCH (09:00)
[2022-06-23] MEDS ORDERED: Multivitamin Tab PO SCH (09:00)
[2022-06-23] MEDS ORDERED: Anastrozole 1 MG Tab PO SCH (09:00)
[2022-06-23] MEDS ORDERED: Lisinopril 20 MG Tab PO SCH (09:00)
[2022-06-23] MEDS ORDERED: Empagliflozin 10 MG Tab PO SCH (09:00)
[2022-06-23] MEDS ORDERED: Magnesium Sulfate/Water 2 GM/50 ML BAG IV ONE (11:07)
[2022-06-23] MEDS ORDERED: Potassium Chloride 20 MEQ Tab.ER PO ONE (11:09)
== END 2022-06-23 13:57 | disposition home or self-care (01) | DRG 720 ==
LOC: JD.ED 14:39 → JD.MS 17:31
PROVIDERS: ADMIT Hospitalist; ATTEND Pediatrics
DX: A41.59 Other Gram-negative sepsis (principal); N10 Acute pyelonephritis; E11.9 Type 2 diabetes mellitus without complications; I10 Essential (primary) hypertension; E87.1 Hypo-osmolality and hyponatremia; E86.0 Dehydration; N17.9 Acute kidney failure, unspecified; I95.9 Hypotension, unspecified; Z85.3 Personal history of malignant neoplasm of breast; Z88.2 Allergy status to sulfonamides; Z88.5 Allergy status to narcotic agent; Z79.899 Other long term (current) drug therapy; Z87.442 Personal history of urinary calculi; Z86.73 Personal history of transient ischemic attack (TIA), and cerebral infarction without residual deficits
CPT/HCPCS: 36415; 74176; 74176-26; 80048; 80053; 81001; 83735; 85025; 86140; 87086; 87088; 87186; 96361; 96374; 97161-GP; 97166-GO; 99285-25; A9270-GY; J0696; J1644; J3475; J3490; J7030; J7120